=== PATIENT | female | born 1930 | race Caucasian/White ===

== ENCOUNTER 2018-12-19 18:19 | Inpatient (IN) | payer MEDICARE, BC | END 2018-12-21 14:24 | disposition home or self-care (01) | LOC: ER 18:19 → SUR 3N 22:12 | DX: R50.9 Fever, unspecified (principal); R53.1 Weakness; R41.82 Altered mental status, unspecified ==

== ENCOUNTER 2019-02-12 07:34 | Inpatient (IN) | payer MEDICARE, BC ==
[~2019-02-12] VITALS: Ht 160 cm; Wt 59.1 kg
[~2019-02-12 07:34] MED LIST: ACET-2119 PO; ERGO400C; FISH1CAP15 PO; HYDR12.55 PO; LEVO25TA2 PO; LISI-600 PO; METO-539 PO; MULT-1141 PO; POLY17PO31; SIMV20TA5 PO; TRAM50TA2 PO
[2019-02-12 08:36] LABS: BASOPHILS % (AUTO) 0.5 % (0-1); EOSINOPHILS % (AUTO) 0.4 % (0-6); HEMOGLOBIN 13.1 g/dl (12.0-16.0); LYMPHOCYTES # (AUTO) 0.9 X10'3 (1.1-4.8); LYMPHOCYTES % (AUTO) 10.9 % (21-51); MEAN CORPUSCULAR HEMOGLOBIN 30.8 PG (27.0-31.0); MEAN CORPUSCULAR HGB CONC 34.4 g/dL (33.0-36.5); MEAN CORPUSCULAR VOLUME 89.6 FL (78-98); MEAN PLATELET VOLUME 7.5 FL (7.4-10.4); MONOCYTES # (AUTO) 0.4 X10'3 (0-0.9); MONOCYTES % (AUTO) 4.8 % (2-12); NEUTROPHILS # (AUTO) 6.9 X10'3 (1.8-7.7); NEUTROPHILS % (AUTO) 83.4 % (42-75); PLATELET COUNT 184 X10'3 (140-440); RED BLOOD COUNT 4.24 X10'6 (4.20-5.60); RED CELL DISTRIBUTION WIDTH 12.7 % (11.5-14.5); WHITE BLOOD COUNT 8.2 X10'3 (4.5-11.0)
[2019-02-12 08:45] LABS: ALANINE AMINOTRANSFERASE 31 U/L (12-78); ALBUMIN 3.8 G/DL (3.4-5.0); ALBUMIN/GLOBULIN RATIO 1.4 (1.1-1.5); ALKALINE PHOSPHATASE 89 IU/L (46-116); ANION GAP 9 (8-16); ASPARTATE AMINO TRANSFERASE 21 U/L (10-37); BILIRUBIN,TOTAL 0.6 MG/DL (0.1-1.0); BLOOD UREA NITROGEN 31 MG/DL (7-18); BUN/CREATININE RATIO 27.7 (6.6-38.0); CALCIUM 9.5 MG/DL (8.5-10.1); CHLORIDE 105 MMOL/L (99-107); CREATININE 1.12 MG/DL (0.40-0.90); GLUCOSE 121 MG/DL (70-104); POTASSIUM 3.6 MMOL/L (3.5-5.1); SODIUM 141 MMOL/L (135-145); TOTAL CARBON DIOXIDE 27.2 MMOL/L (24-32); TOTAL PROTEIN 6.6 G/DL (6.4-8.2); eGFR 46 ML/MIN
[2019-02-12 08:47] LABS: PARTIAL THROMBOPLASTIN TIME 23 SECONDS (22-32)
[2019-02-12 09:07] LABS: CLARITY,URINE CLEAR (Clear); COLOR,URINE YELLOW (Yellow); GLUCOSE, URINE NEGATIVE (Neg); KETONES,URINE NEGATIVE (Neg); LEUKOCYTE ESTERASE ,URINE NEGATIVE (Neg); NITRITES, URINE POSITIVE (Neg); OCCULT BLOOD,URINE TRACE-INTACT (Neg); PH,URINE 5.5 (4.8-8.0); PROTEIN,URINE NEGATIVE (Neg); UROBILINOGEN,URINE 0.2 E.U/dL (0.2-1.0)
[2019-02-12 09:13] LABS: UA COLLECTION TYPE STRAIGHT CATH
[2019-02-12 09:14] LABS: BACTERIA,URINE 3+ /HPF (Neg); MUCUS STRANDS NONE SEEN /LPF (Neg); RBC,URINE 0-2 /HPF (0-2); SQUAMOUS EPITHELIAL CELL,UR NONE SEEN /LPF (FEW)
[2019-02-12 09:15] LABS: LIPASE 141 U/L (73-393)
--- NOTE | 2019-02-12 09:39 | NUR ---
SPOKE TO DR. CASTRO AND INFORMED HIM OF THE ELEVATED LACTIC ACID AND PROCALCITONIN LEVELS WELL PT'S URINE RESULTS WHICH SHOWED AN INFECTION.
[2019-02-12] MEDS ORDERED: CefTRIAXone 2gm/D5W 50ml 50 ML IV ONE (09:45)
[2019-02-12] MEDS ORDERED: mag hydrox/Alum hydrox/simeth 30ml oral suspension PO PRN (10:20)
[2019-02-12] MEDS ORDERED: HYDROcodone/acetaminophen 10/325mg tab PO PRN (10:20)
[2019-02-12] MEDS ORDERED: morphine 2 MG/ML inj. syringe IV PRN (10:20)
[2019-02-12] MEDS ORDERED: acetaminophen 325mg tablet PO PRN (10:20)
[2019-02-12] MEDS ORDERED: ondansetron/PF 4mg/2ml inj IV PRN (10:20)
[2019-02-12] MEDS ORDERED: HYDROcodone/acetaminophen 5mg/325mg tablet PO PRN (10:20)
[2019-02-12] MEDS ORDERED: magnesium hydroxide 30ml (MOM) UD suspension PO PRN (10:20)
[2019-02-12] MEDS: morphine 2 MG/ML inj. syringe IV PRN ×3 (11:29→21:15)
[2019-02-12] MEDS: dextrose 5%-1/2 normal saline 1,000 ML IV SCH ×2 (11:55→20:18)
[2019-02-12] MEDS ORDERED: HYDR12.5 PO (12:20)
[2019-02-12] MEDS ORDERED: traMADol 50MG tablet PO PRN (13:00)
[2019-02-12 16:37] VITALS: BP 124/37
[2019-02-12 18:00] VITALS: BP 118/43
--- NOTE | 2019-02-12 18:15 | NUR ---
Patient in room [facility]. I have received report from Kelli SINGLETON and had the opportunity to ask questions and assume patient care. no signs of distress. call light and frq used belongings at bedside. 2RN skin check completed. Daughter at bedside. will continue to monitor.
--- NOTE | 2019-02-12 18:22 | NUR ---
Pt. resting comfortably in bed. no c/o pain noted at this time. Fluids running through IV per order. Visitor-daughter at bedside, no needs at this time. Pt turned for skin check and then repositioned. Gave report to Giselle SINGLETON.
--- NOTE | 2019-02-12 20:30 | NUR ---
Attempted to called the office of Dr. Thompson 2014 for the answering service, stated the mailbox was full and it hung up. Then used the number provided from the charge nurse at 2030, busy line. will try to call OR to clarify CT order with ordering nurse. will continue to monitor.
[2019-02-12] MEDS: lisinopril 10 MG tablet PO SCH (20:36)
[2019-02-12] MEDS: atorvastatin 20mg tablet PO SCH (20:36)
[2019-02-12] MEDS: metoprolol succinate 25mg (24-HOUR) SR. Tablet PO SCH (20:36)
--- NOTE | 2019-02-12 21:10 | NUR ---
Dr. Thompson called concerning the pt. Clarified order about the CT as the order says it to be "done at 0430" and what he wants done for contrast. Dr. Thompson asked to talked with charge nurse. orders given. will continue to monitor.
[2019-02-12] MEDS: diatr meglu/diatrizoate 30ml oral sol.-(3 dose) bottle PO SCH ×2 (21:43→23:15)
[2019-02-13] VITALS (18 sets, daily range): BP systolic 115–156; BP diastolic 39–78
[2019-02-13] MEDS: diatr meglu/diatrizoate 30ml oral sol.-(3 dose) bottle PO SCH (01:38)
--- NOTE | 2019-02-13 01:45 | NUR ---
pt left for CT scan. awaiting pt arrival
--- NOTE | 2019-02-13 02:05 | NUR ---
pt back from CT. no signs of distress. call light in reach
[2019-02-13] MEDS ORDERED: ceFAZolin 1000mg inj ONE (02:52)
[2019-02-13] MEDS ORDERED: BUPIVAcaine/PF 2.5 mg/ml (0.25%) 30ml vial ONE (02:52)
[2019-02-13] MEDS ORDERED: midazolam 2 mg/2 ml injection ONE (02:55)
[2019-02-13] MEDS ORDERED: fentaNYL/PF 50MCG/1 ML 2ML syringe ONE (02:55)
[2019-02-13] MEDS ORDERED: neostigmine methylsulfate 1 MG/ML 10ml vial ONE (02:55)
[2019-02-13] MEDS ORDERED: dexamethasone sod phosphate 10mg/ml inj ONE (02:55)
[2019-02-13] MEDS ORDERED: LIDOcaine 1%/PF 5ML 10 MG/ML VIAL ONE (02:55)
[2019-02-13] MEDS ORDERED: propofol 10mg/ml 20ml vial IV ONE (02:55)
--- NOTE | 2019-02-13 02:55 | NUR ---
pt going down to OR. will await pt arrival
[2019-02-13] MEDS ORDERED: ondansetron/PF 4mg/2ml inj ONE (02:56)
[2019-02-13] MEDS ORDERED: glycopyrrolate 0.2mg/ml inj ONE (02:56)
[2019-02-13] MEDS ORDERED: rocuronium 10mg/ml inj IV ONE (02:56)
[2019-02-13] MEDS ORDERED: ringers solution, lacted 1,000 ML IV SCH (03:01)
--- NOTE | 2019-02-13 03:01 | NUR ---
pt's daughter Arturo, [phone], to make aware that pt was going down for surgery. daughter would like to be called back when the pt is back on the floor. will continue to monitor.
[2019-02-13] MEDS ORDERED: fentaNYL/PF 50MCG/1 ML 2ML syringe IV PRN ×2 (03:05)
[2019-02-13] MEDS ORDERED: labetalol 20mg/4ml (5mg/ml) syringe IV PRN (03:05)
[2019-02-13] MEDS ORDERED: hydrALAZINE 20mg/ml inj. IV PRN (03:05)
[2019-02-13] MEDS ORDERED: ondansetron/PF 4mg/2ml inj IV PRN (03:05)
[2019-02-13] MEDS ORDERED: morphine 4 MG/ML inj SYRINge IV PRN ×2 (03:05)
[2019-02-13] MEDS ORDERED: sugammadex 200mg/2ml injection IV ONE (03:41)
[2019-02-13] MEDS ORDERED: labetalol 20mg/4ml (5mg/ml) syringe IV ONE (04:00)
--- NOTE | 2019-02-13 04:14 | NUR ---
Received from OR via , accompanied by Anesthesiologist DR. FOURNIER and report given by Anesthesiolgist. PATIENT ARRIVED TO PACU [facility] BED 02 99% ON 10L MASK, VSS CHARTED, ABD SOFT TO TOUCH, ABD DRESSING CDI WITH J/P NOTED SEROUSSANG DRAINGE, IVF INFUSING ORDERED, SCD'S IN PLACE, WILL CONTIUNE TO MONITOR.
--- NOTE | 2019-02-13 04:45 | NUR ---
received report from Burt, Lauren SINGLETON. was able to ask questions. pt still has some time in recovery, awaiting pt arrival.
--- NOTE | 2019-02-13 05:04 | NUR ---
PATIENT TRANSFER CRITERIA MET, REPORT CALLED TO JEZ SINGLETON ON SUGR ALL QUESTIONS AND CONCERNS ADDRESSED, ABD SOFT TO TOUCH, DRESSING CDI, LUZ MARIA IN PLACE, IVF INFUSING ORDERED, SCD'S IN PLACE, TRANSFERRED TO [facility] ACCOMPANIED BY HOSPITAL STAFF.
--- NOTE | 2019-02-13 05:07 | NUR ---
pt in bed, post ops vitals signs are hooked up. SCDs on, call light and frq used belongings within reach. no signs of distress. 3 lap sites midline, LUZ MARIA to the right side. will continue to monitor.
[2019-02-13] MEDS: dextrose 5%-1/2 normal saline 1,000 ML IV SCH ×2 (05:16→17:48)
--- NOTE | 2019-02-13 06:10 | NUR ---
Problems reprioritized. Patient report given, questions answered & plan of care reviewed with Saleem RN. pt sleeping, no signs of distress. call light and frq used belongigns within reach. IV intact and IVF infusing per MDs orders.
--- NOTE | 2019-02-13 06:30 | NUR ---
Patient in room [facility]. I have received report from MANI Desai and had the opportunity to ask questions and assume patient care.
[2019-02-13 07:58] LABS: EOSINOPHILS % (AUTO) 0 % (0-6); HEMOGLOBIN 12.2 g/dl (12.0-16.0); MEAN PLATELET VOLUME 7.7 FL (7.4-10.4); MONOCYTES # (AUTO) 0.2 X10'3 (0-0.9); MONOCYTES % (AUTO) 1.5 % (2-12); NEUTROPHILS % (AUTO) 92.1 % (42-75)
[2019-02-13] MEDS ORDERED: non-formulary drug (Fish Oil/Dha/Epa (Fish Oil 1,200 Mg Fish Oil) 1 EACH) PO SCH (08:00)
[2019-02-13] MEDS: levoTHYROXINE 75mcg tablet PO SCH (08:02)
[2019-02-13] MEDS: cholecalciferol (vitamin D) 400 unit tablet PO SCH (08:02)
[2019-02-13] MEDS: lisinopril 10 MG tablet PO SCH ×2 (08:02→20:42)
[2019-02-13] MEDS: HYDROchlorothiazide 12.5mg capsule PO SCH (08:02)
[2019-02-13 08:05] LABS: BASOPHILS % (AUTO) 0.1 % (0-1); HEMATOCRIT 36.4 % (35.0-45.0); LYMPHOCYTES # (AUTO) 0.8 X10'3 (1.1-4.8); LYMPHOCYTES % (AUTO) 6.3 % (21-51); MEAN CORPUSCULAR HEMOGLOBIN 30.4 PG (27.0-31.0); MEAN CORPUSCULAR HGB CONC 33.5 g/dL (33.0-36.5); MEAN CORPUSCULAR VOLUME 90.8 FL (78-98); NEUTROPHILS # (AUTO) 10.9 X10'3 (1.8-7.7); PLATELET COUNT 181 X10'3 (140-440); RED BLOOD COUNT 4.01 X10'6 (4.20-5.60); RED CELL DISTRIBUTION WIDTH 13.3 % (11.5-14.5); WHITE BLOOD COUNT 11.9 X10'3 (4.5-11.0)
[2019-02-13 08:08] LABS: ALBUMIN 3.1 G/DL (3.4-5.0); ANION GAP 10 (8-16); BLOOD UREA NITROGEN 22 MG/DL (7-18); BUN/CREATININE RATIO 22.4 (6.6-38.0); CALCIUM 9.2 MG/DL (8.5-10.1); CHLORIDE 104 MMOL/L (99-107); CREATININE 0.98 MG/DL (0.40-0.90); GLUCOSE 186 MG/DL (70-104); POTASSIUM 3.5 MMOL/L (3.5-5.1); SODIUM 141 MMOL/L (135-145); TOTAL CARBON DIOXIDE 26.6 MMOL/L (24-32); eGFR 53 ML/MIN
[2019-02-13] MEDS: HYDROcodone/acetaminophen 10/325mg tab PO PRN ×3 (10:22→20:42)
[2019-02-13] MEDS: CefTRIAXone/D5W-Rocephin 1gm 50 ML IV SCH (10:23)
--- NOTE | 2019-02-13 18:38 | NUR ---
Problems reprioritized. Patient report given, questions answered & plan of care reviewed with MANI Desai.
[2019-02-13] MEDS: lactobacillus rhamnosus 10,000 MMU CELLS/CAPSULE PO SCH (20:41)
[2019-02-13] MEDS: atorvastatin 20mg tablet PO SCH (20:42)
[2019-02-13] MEDS: metoprolol succinate 25mg (24-HOUR) SR. Tablet PO SCH (20:42)
--- NOTE | 2019-02-13 22:00 | NUR ---
pt urinated in the BSC, PRV checked with bladder scan, 0mL. will continue to monitor
[2019-02-14] VITALS: BP 151/63
[2019-02-14] MEDS: HYDROcodone/acetaminophen 10/325mg tab PO PRN ×2 (01:29→10:07)
[2019-02-14] MEDS: dextrose 5%-1/2 normal saline 1,000 ML IV SCH ×3 (02:43→14:41)
--- NOTE | 2019-02-14 06:10 | NUR ---
Patient in room [facility]. I have received report from MANI Desai and had the opportunity to ask questions and assume patient care.
--- NOTE | 2019-02-14 06:10 | NUR ---
Problems reprioritized. Patient report given, questions answered & plan of care reviewed with Janet RN. no signs of distress. call light and frq used belongings within reach. IV intact and IVF infusing per MD orders. A/Ox4
[2019-02-14 06:30] VITALS: BP 150/63
[2019-02-14 09:15] LABS: BASOPHILS % (AUTO) 0.1 % (0-1); EOSINOPHILS % (AUTO) 0.1 % (0-6); HEMOGLOBIN 11.8 g/dl (12.0-16.0); LYMPHOCYTES # (AUTO) 1.4 X10'3 (1.1-4.8); LYMPHOCYTES % (AUTO) 12.1 % (21-51); MEAN CORPUSCULAR HEMOGLOBIN 30.7 PG (27.0-31.0); MEAN CORPUSCULAR HGB CONC 33.7 g/dL (33.0-36.5); MEAN CORPUSCULAR VOLUME 91.2 FL (78-98); MEAN PLATELET VOLUME 7.9 FL (7.4-10.4); MONOCYTES # (AUTO) 0.5 X10'3 (0-0.9); NEUTROPHILS # (AUTO) 9.4 X10'3 (1.8-7.7); NEUTROPHILS % (AUTO) 83.7 % (42-75); PLATELET COUNT 202 X10'3 (140-440); RED BLOOD COUNT 3.84 X10'6 (4.20-5.60); WHITE BLOOD COUNT 11.3 X10'3 (4.5-11.0)
[2019-02-14 09:19] LABS: ANION GAP 9 (8-16); BLOOD UREA NITROGEN 18 MG/DL (7-18); BUN/CREATININE RATIO 20.2 (6.6-38.0); CALCIUM 9.4 MG/DL (8.5-10.1); CHLORIDE 103 MMOL/L (99-107); CREATININE 0.89 MG/DL (0.40-0.90); GLUCOSE 137 MG/DL (70-104); POTASSIUM 3.3 MMOL/L (3.5-5.1); SODIUM 137 MMOL/L (135-145); TOTAL CARBON DIOXIDE 25.3 MMOL/L (24-32); eGFR 60 ML/MIN
[2019-02-14] MEDS ORDERED: magnesium Cl slow-release 64mg tablet PO PRN (09:45)
[2019-02-14] MEDS ORDERED: potassium Cl 40MEQ/NS 500ml 500 ML IV PRN ×2 (09:45)
[2019-02-14] MEDS ORDERED: magnesium 2GM in 50ml NS 50 ML IV PRN (09:45)
[2019-02-14] MEDS ORDERED: magnesium 4gm in 100ml NS 100 ML IV PRN (09:45)
[2019-02-14] MEDS ORDERED: potassium Cl 20 mEq SR tablet PO PRN (09:45)
[2019-02-14] MEDS: levoTHYROXINE 75mcg tablet PO SCH (09:54)
[2019-02-14] MEDS: HYDROchlorothiazide 12.5mg capsule PO SCH (09:54)
[2019-02-14] MEDS: cholecalciferol (vitamin D) 400 unit tablet PO SCH (09:54)
[2019-02-14] MEDS: lactobacillus rhamnosus 10,000 MMU CELLS/CAPSULE PO SCH ×2 (09:54→19:32)
[2019-02-14] MEDS: lisinopril 10 MG tablet PO SCH ×2 (09:55→19:30)
[2019-02-14] MEDS: CefTRIAXone/D5W-Rocephin 1gm 50 ML IV SCH (09:55)
[2019-02-14 11:30] VITALS: BP 146/57
[2019-02-14] MEDS: potassium Cl 20 mEq SR tablet PO PRN ×3 (11:39→22:21)
--- NOTE | 2019-02-14 18:20 | NUR ---
Patient in room [facility]. I have received report from Janet SINGLETON and had the opportunity to ask questions and assume patient care.
[2019-02-14 19:00] VITALS: BP 149/59
[2019-02-14] MEDS: metoprolol succinate 25mg (24-HOUR) SR. Tablet PO SCH (22:21)
[2019-02-14] MEDS: atorvastatin 20mg tablet PO SCH (22:21)
[2019-02-15] VITALS: BP 118/64
[2019-02-15] MEDS: dextrose 5%-1/2 normal saline 1,000 ML IV SCH (00:31)
[2019-02-15] MEDS: HYDROcodone/acetaminophen 10/325mg tab PO PRN (01:59)
[2019-02-15 05:39] LABS: BASOPHILS % (AUTO) 0.4 % (0-1); EOSINOPHILS # (AUTO) 0.1 X10'3 (0-0.9); EOSINOPHILS % (AUTO) 1.6 % (0-6); HEMATOCRIT 30.9 % (35.0-45.0); HEMOGLOBIN 10.6 g/dl (12.0-16.0); LYMPHOCYTES # (AUTO) 1.8 X10'3 (1.1-4.8); LYMPHOCYTES % (AUTO) 26.5 % (21-51); MEAN CORPUSCULAR HEMOGLOBIN 31.2 PG (27.0-31.0); MEAN CORPUSCULAR HGB CONC 34.4 g/dL (33.0-36.5); MEAN CORPUSCULAR VOLUME 90.6 FL (78-98); MEAN PLATELET VOLUME 7.6 FL (7.4-10.4); MONOCYTES # (AUTO) 0.4 X10'3 (0-0.9); MONOCYTES % (AUTO) 5.5 % (2-12); NEUTROPHILS # (AUTO) 4.4 X10'3 (1.8-7.7); PLATELET COUNT 179 X10'3 (140-440); RED BLOOD COUNT 3.41 X10'6 (4.20-5.60); RED CELL DISTRIBUTION WIDTH 12.9 % (11.5-14.5); WHITE BLOOD COUNT 6.7 X10'3 (4.5-11.0)
[2019-02-15 06:07] LABS: ALBUMIN 2.8 G/DL (3.4-5.0); ANION GAP 6 (8-16); BLOOD UREA NITROGEN 12 MG/DL (7-18); BUN/CREATININE RATIO 14.6 (6.6-38.0); CALCIUM 9.2 MG/DL (8.5-10.1); CHLORIDE 107 MMOL/L (99-107); CREATININE 0.82 MG/DL (0.40-0.90); GLUCOSE 105 MG/DL (70-104); MAGNESIUM 1.5 MG/DL (1.5-2.4); POTASSIUM 3.7 MMOL/L (3.5-5.1); SODIUM 140 MMOL/L (135-145); TOTAL CARBON DIOXIDE 27.2 MMOL/L (24-32); eGFR 66 ML/MIN
[2019-02-15 06:30] VITALS: BP 150/57
--- NOTE | 2019-02-15 06:40 | NUR ---
Patient in room [facility]. I have received report from MANI Kee and had the opportunity to ask questions and assume patient care.
--- NOTE | 2019-02-15 06:50 | NUR ---
Patient in room [facility]. I have received report from Janet and had the opportunity to ask questions and assume patient care.
--- NOTE | 2019-02-15 06:59 | NUR ---
Problems reprioritized. Patient report given, questions answered & plan of care reviewed with Josefina SINGLETON.
[2019-02-15 07:15] VITALS: BP 180/70
[2019-02-15] MEDS: CefTRIAXone/D5W-Rocephin 1gm 50 ML IV SCH (08:26)
[2019-02-15] MEDS: HYDROchlorothiazide 12.5mg capsule PO SCH (08:33)
[2019-02-15] MEDS: levoTHYROXINE 75mcg tablet PO SCH (08:33)
[2019-02-15] MEDS: cholecalciferol (vitamin D) 400 unit tablet PO SCH (08:33)
[2019-02-15] MEDS: lactobacillus rhamnosus 10,000 MMU CELLS/CAPSULE PO SCH (08:33)
[2019-02-15] MEDS: lisinopril 10 MG tablet PO SCH (08:36)
--- NOTE | 2019-02-15 09:09 | NUR ---
pain with dorsiflexion in bilat calfs, left > right; BLE without edema or erythema; notified nurse Janet Addendum: 02/15/19 at 0920 by Sari BUTLER Amended: Links added.
[2019-02-15] MEDS ORDERED: HYDR-3964 PO (09:20)
[2019-02-15] MEDS ORDERED: SULF1TAB49 PO (09:21)
--- NOTE | 2019-02-15 09:35 | NUR ---
pain increases to 05/29 with movement Addendum: 02/15/19 at 0935 by Sari BUTLER Amended: Links added.
[2019-02-15 10:30] VITALS: BP 147/59
--- NOTE | 2019-02-15 11:00 | NUR ---
Student Medication Administration: For this medication-pass time frame, all medication were reviewed, dispensed, administered and documented per hospital policy by yenni Guo.
--- NOTE | 2019-02-15 11:16 | NUR ---
pain 05/29 with movement Addendum: 02/15/19 at 1118 by Sari BUTLER Amended: Links added.
--- NOTE | 2019-02-15 11:46 | NUR ---
Student documentation: I have reviewed and agree with all interventions, assessments performed and documented by Sari, student services representative.
--- NOTE | 2019-02-15 12:01 | NUR ---
Patient in room [facility]. I have received report from Sari RN student and Janet RN and had the opportunity to ask questions and assume patient care.
--- NOTE | 2019-02-15 12:24 | NUR ---
Problems reprioritized. Patient report given, questions answered & plan of care reviewed with Janet.
--- NOTE | 2019-02-15 12:35 | NUR ---
DC inst provided to pt//daughter. IV DC'd, tip intact. All belongings sent w/pt. WC to [facility]. Addendum: 02/15/19 at 1249 by Janet Ho RN Pt not DC'd w/in 2hr of MD DC order 2/2 workload prevented.
== END 2019-02-15 12:34 | disposition home health service (06) | DRG 342 ==
LOC: ER 07:34 → SUR 3N 16:54
PROVIDERS: ADMIT Internal Medicine; ATTEND Internal Medicine
PROC: 0DTJ4ZZ Resection of Appendix, Percutaneous Endoscopic Approach (ICD-10-PCS; principal; 2019-02-13 02:55)
DX: K35.80 Unspecified acute appendicitis (principal); E87.2 Acidosis; N17.9 Acute kidney failure, unspecified; N39.0 Urinary tract infection, site not specified; E78.5 Hyperlipidemia, unspecified; E03.9 Hypothyroidism, unspecified; F17.200 Nicotine dependence, unspecified, uncomplicated; I10 Essential (primary) hypertension; B96.20 Unspecified Escherichia coli [E. coli] as the cause of diseases classified elsewhere; E86.0 Dehydration; Z79.890 Hormone replacement therapy
CPT/HCPCS: 36415; 71045; 74176; 80048; 80053; 81001; 83605; 83690; 83735; 84145; 84443; 85025; 85610; 85730; 87040; 87070; 87077; 87088; 87186; 93005; 96365; 99285; A6251; A7000; C9399; G0378; J0690; J0696; J1100; J2001; J2250; J2270; J2405; J2704; J2710; J3010; J3490; J7120; Q9963

== ENCOUNTER 2019-03-05 08:59 | Inpatient (IN) | payer MEDICARE, BC | END 2019-03-10 19:43 | disposition home or self-care (01) | LOC: SUR 3N 03-06 11:05 → PAS IN 08:59 → SUR 3N 17:50 | PROC: 0DTH0ZZ Resection of Cecum, Open Approach (ICD-10-PCS; principal; 2019-03-05 12:42) | PROC: 0DN84ZZ Release Small Intestine, Percutaneous Endoscopic Approach (ICD-10-PCS; 2019-03-05 12:42) | DX: D49.0 Neoplasm of unspecified behavior of digestive system (principal); K56.7 Ileus, unspecified ==